=== PATIENT | male | born 1995 | race Hispanic/Latino ===

== ENCOUNTER 2018-10-13 08:32 | Emergency (ER) | payer MEDICAID, SELFPAY ==
[2018-10-13] MEDS ORDERED: Lidocaine 1% w/Epinephrine 1:100K 20 ML VIAL ONE (09:15)
[2018-10-13] MEDS ORDERED: Adacel (T-DAP) 0.5 ML VIAL ONE (09:16)
[2018-10-13] MEDS ORDERED: Bacitracin Zinc 1 Packet ONE (09:37)
== END 2018-10-13 10:04 | disposition home or self-care (01) ==
LOC: ERS 08:32
DX: S41.151A Open bite of right upper arm, initial encounter (principal); S41.111A Laceration without foreign body of right upper arm, initial encounter; W54.0XXA Bitten by dog, initial encounter
CPT/HCPCS: 12004; 90471; 90715; J2001